=== PATIENT | female | born 1950 | race African-American/Black ===

== ENCOUNTER 2019-06-06 16:40 | Emergency (ER) | payer MEDICARE ==
--- NOTE | 2019-06-06 17:10 | Event Note ---
ED Screening Note Date of service: 06/06/19 Time: 17:04 ED Screening Note: 68 y/o female come in for blood in urine that started today about 12pm. Dysuria and pelvic pressure. No fevre no chill no n/v. PMH This initial assessment/diagnostic orders/clinical plan/treatment(s) is/are subject to change based on patients health status, clinical progression and re- assessment by fellow clinical providers in the ED. Further treatment and workup at subsequent clinical providers discretion. Patient/guardian urged not to elope from the ED as their condition may be serious if not clinically assessed and managed. Initial orders include:
[2019-06-06 17:39] LABS: Basophils % (Auto) 0.1 % (0.0-1.8); Eosinophils # (Auto) 0.1 K/mm3 (0.0-0.4); Eosinophils % (Auto) 0.5 % (0.0-4.3); Hematocrit 41.7 % (30.3-42.9); Hemoglobin 14.1 gm/dl (10.1-14.3); Lymphocytes # (Auto) 1.7 K/mm3 (1.2-5.4); Lymphocytes % (Auto) 15.8 % (13.4-35.0); Mean Corpuscular HGB Conc 34 % (30-34); Mean Corpuscular Volume 85 fl (79-97); Monocytes # (Auto) 0.6 K/mm3 (0.0-0.8); Monocytes % (Auto) 5.5 % (0.0-7.3); Platelet Count 111 K/mm3 (140-440); Red Blood Count 4.92 M/mm3 (3.65-5.03); Red Cell Distribution Width 13.4 % (13.2-15.2)
[2019-06-06 17:56] LABS: BUN/Creatinine Ratio 38; Blood Urea Nitrogen 19 mg/dL (7-17); Calcium 9.6 mg/dL (8.4-10.2); Hemolysis Index 12
[2019-06-06 18:00] LABS: Bacteria,Urine 1+ /HPF (Negative); Bilirubin,Urine NEG (Negative); Blood,Urine MOD (Negative); Color,Urine Red (Yellow); Urobilinogen,Urine < 2.0 mg/dL (<2.0)
[2019-06-06 18:02] LABS: RBC,Urine > 182.0 /HPF (0.0-6.0)
--- NOTE | 2019-06-06 19:20 | Emergency Department Report ---
ED Female HPI - General Chief complaint: Urogenital-Female Stated complaint: BLOOD IN URINE Time Seen by Provider: 06/06/19 17:02 Source: patient, family Mode of arrival: Ambulatory Limitations: Language Barrier - History of Present Illness Initial comments: Patient is a 68-year-old female who presents the emergency room with complaints of hematuria that began this morning. she has associated dysuria, urinary frequency, urinary urgency, suprapubic abdominal discomfort. Patient denies any nausea, vomiting, diarrhea, fever, any other symptoms. Patient has a past medical history of high blood pressure and hyperlipidemia. She denies any allergies to medications. Fijian interpretation by her son. - Related Data Home Medications Medication Instructions Recorded Confirmed Last Taken Aspirin [Lo-Dose Aspirin EC] 81 mg PO DAILY 05/26/18 09/27/18 1 Week Ago ~09/20/18 Lisinopril [Zestril] 40 mg PO DAILY 05/26/18 09/27/18 09/27/18 06:30 Omeprazole 20 mg PO DAILY 05/26/18 09/21/18 09/26/18 Simvastatin [Zocor TAB] 40 mg PO QHS 05/26/18 09/21/18 09/26/18 hydroCHLOROthiazide [HCTZ] 25 mg PO QDAY 05/26/18 09/21/18 09/26/18 metFORMIN [Glucophage] 500 mg PO BID 05/26/18 09/21/18 09/26/18 Previous Rx's Medication Instructions Recorded Last Taken Type cephALEXin [Keflex] 500 mg PO BID 7 Days #14 capsule 06/06/19 Unknown Rx Allergies Allergy/AdvReac Type Severity Reaction Status Date / Time No Known Allergies Allergy Verified 05/26/18 17:27 ED Review of Systems ROS: Stated complaint: BLOOD IN URINE Other details as noted in HPI Comment: All other systems reviewed and negative ED Past Medical Hx - Past Medical History Hx Hypertension: Yes (X 6 YRS) Hx Diabetes: Yes Hx GERD: Yes Hx Kidney Stones: Yes (PT UNSURE) Hx HIV: No - Social History Smoking Status: Never Smoker Substance Use Type: None - Medications Home Medications: Home Medications Medication Instructions Recorded Confirmed Last Taken Type Aspirin [Lo-Dose Aspirin EC] 81 mg PO DAILY 05/26/18 09/27/18 1 Week Ago History ~09/20/18 Lisinopril [Zestril] 40 mg PO DAILY 05/26/18 09/27/18 09/27/18 06:30 History Omeprazole 20 mg PO DAILY 05/26/18 09/21/18 09/26/18 History Simvastatin [Zocor TAB] 40 mg PO QHS 05/26/18 09/21/18 09/26/18 History hydroCHLOROthiazide [HCTZ] 25 mg PO QDAY 05/26/18 09/21/18 09/26/18 History metFORMIN [Glucophage] 500 mg PO BID 05/26/18 09/21/18 09/26/18 History cephALEXin [Keflex] 500 mg PO BID 7 Days #14 capsule 06/06/19 Unknown Rx ED Physical Exam - General Limitations: Language Barrier General appearance: alert, in no apparent distress - Head Head exam: Present: atraumatic, normocephalic - Eye Eye exam: Present: normal appearance - ENT ENT exam: Present: mucous membranes moist - Respiratory Respiratory exam: Present: normal lung sounds bilaterally. Absent: respiratory distress, wheezes, rales, rhonchi, stridor, chest wall tenderness, accessory muscle use, decreased breath sounds, prolonged expiratory - Cardiovascular Cardiovascular Exam: Present: regular rate, normal rhythm, normal heart sounds. Absent: systolic murmur, diastolic murmur, rubs, gallop - GI/Abdominal GI/Abdominal exam: Present: soft, normal bowel sounds. Absent: distended, tenderness, guarding, rebound, rigid - Back Exam Back exam: Absent: CVA tenderness (R), CVA tenderness (L) - Neurological Exam Neurological exam: Present: alert, oriented X3 - Psychiatric Psychiatric exam: Present: normal affect, normal mood - Skin Skin exam: Present: warm, dry, intact ED Course Vital Signs 06/06/19 06/06/19 17:28 19:55 Temperature 98.6 F 97.8 F Pulse Rate 89 84 Respiratory 16 15 Rate Blood Pressure 172/98 Blood Pressure 152/85 [Left] O2 Sat by Pulse 97 99 Oximetry ED Medical Decision Making - Lab Data Result diagrams: 06/06/19 17:19 06/06/19 17:19 Lab Results 06/06/19 06/06/19 06/06/19 Range/Units 17:15 17:19 17:19 WBC 10.8 (4.5-11.0) K/mm3 RBC 4.92 (3.65-5.03) M/mm3 Hgb 14.1 (10.1-14.3) gm/dl Hct 41.7 (30.3-42.9) % MCV 85 (79-97) fl MCH 29 (28-32) pg MCHC 34 (30-34) % RDW 13.4 (13.2-15.2) % Plt Count 111 L (140-440) K/mm3 Lymph % (Auto) 15.8 (13.4-35.0) % [place] % (Auto) 5.5 (0.0-7.3) % Eos % (Auto) 0.5 (0.0-4.3) % Baso % (Auto) 0.1 (0.0-1.8) % Lymph # 1.7 (1.2-5.4) K/mm3 [place] # 0.6 (0.0-0.8) K/mm3 Eos # 0.1 (0.0-0.4) K/mm3 Baso # 0.0 (0.0-0.1) K/mm3 Seg Neutrophils % 78.1 H (40.0-70.0) % Seg Neutrophils # 8.4 H (1.8-7.7) K/mm3 Sodium 138 (137-145) mmol/L Potassium 4.2 (3.6-5.0) mmol/L Chloride 99.4 (98-107) mmol/L Carbon Dioxide 28 (22-30) mmol/L Anion Gap 15 mmol/L BUN 19 H (7-17) mg/dL Creatinine 0.5 L (0.7-1.2) mg/dL Estimated GFR > 60 ml/min BUN/Creatinine Ratio 38 % Glucose 143 H (65-100) mg/dL Calcium 9.6 (8.4-10.2) mg/dL Urine Color Red (Yellow) Urine Turbidity Clear (Clear) Urine pH 6.0 (5.0-7.0) Ur Specific [place] 1.005 (1.003-1.030) Urine Protein 100 mg/dl (Negative) mg/dL Urine Glucose (UA) 50 (Negative) mg/dL Urine Ketones Neg (Negative) mg/dL Urine Blood Mod (Negative) Urine Nitrite Neg (Negative) Urine Bilirubin Neg (Negative) Urine Urobilinogen < 2.0 (<2.0) mg/dL Ur Leukocyte Esterase Mod (Negative) Urine WBC (Auto) 76.0 H (0.0-6.0) /HPF Urine RBC (Auto) > 182.0 (0.0-6.0) /HPF Urine Bacteria (Auto) 1+ (Negative) /HPF Urine WBC Clumps 3+ /HPF - Medical Decision Making Patient is a 68-year-old female who presents the emergency room with complaints of hematuria that began this morning. she has associated dysuria, urinary frequency, urinary urgency, suprapubic abdominal discomfort. Patient denies any nausea, vomiting, diarrhea, fever, any other symptoms. Patient has a past medical history of high blood pressure and hyperlipidemia. She denies any allergies to medications. Fijian interpretation by her son. no abdominal or CVAT on exam. pt labs are stable. UA with many RBCs, many WBCs, and moderate leukocyte esterase. pt given prescription for keflex. advised to please take medication as prescribed to completion. Drink plenty of water over the next several days. Follow up with a urologist in the next 2-3 days. Return to the emergency room for any new or worsening symptoms. Critical care attestation.: If time is entered above; I have spent that time in minutes in the direct care of this critically ill patient, excluding procedure time. ED Disposition Clinical Impression: Dysuria Hematuria Qualifiers: Hematuria type: unspecified type Qualified Code(s): R31.9 - Hematuria, unspecified UTI (urinary tract infection) Qualifiers: Urinary tract infection type: acute cystitis Hematuria presence: with hematuria Qualified Code(s): N30.01 - Acute cystitis with hematuria Disposition: TO HOME OR SELFCARE Is pt being admited?: No Does the pt Need Aspirin: No Condition: Stable Instructions: Urinary Tract Infection in Women (ED), Acute Hematuria (ED) Additional Instructions: Please take medication as prescribed to completion. Drink plenty of water over the next several days. Follow up with a urologist in the next 2-3 days. Return to the emergency room for any new or worsening symptoms. Prescriptions: cephALEXin [Keflex] 500 mg PO BID 7 Days #14 capsule Referrals: GERMANIA BACH MD [Staff Physician] - 2-3 Days Time of Disposition: 19:18 Print Language: ESTONIAN
[2019-06-06] MEDS ORDERED: ROCEPHIN IM ONE (19:21)
[2019-06-06] MEDS ORDERED: XYLOCAINE 1% MPF 5 mL INFILTRATI ONE (19:21)
[2019-06-06 19:56] VITALS: BP 152/85
== END 2019-06-06 19:59 | disposition home or self-care (01) ==
LOC: ED 16:40
DX: N39.0 Urinary tract infection, site not specified (principal); I10 Essential (primary) hypertension; E11.9 Type 2 diabetes mellitus without complications; K21.9 Gastro-esophageal reflux disease without esophagitis; Z79.899 Other long term (current) drug therapy; Z87.442 Personal history of urinary calculi
CPT/HCPCS: 36415; 80048; 81001; 85025; 87076; 87086; 87186; 96372; 99283; J0696